=== PATIENT | male | born 1950 | race Caucasian/White ===

== ENCOUNTER 2018-03-01 18:05 | Emergency (ER) | payer OTHER ==
[2018-03-01 18:17] VITALS: BP 159/101
--- NOTE | 2018-03-01 18:32 | ED Physician Documentation ---
History of Present Illness - Stated complaint Stated Complaint: VITAMIN CAUGHT IN THROAT - Chief complaint Chief Complaint: General - History obtained from History obtained from: Patient - History of Present Illness Timing: Today (Swallowing a saw palmetto prior to arrival and feels like it stuck in his throat although he is able to swallow liquids and is talking normally.) Review of Systems Constitutional: reports: Reviewed and negative Ears: reports: Reviewed and negative Nose: reports: Reviewed and negative PD PAST MEDICAL HISTORY - Past Medical History Past Medical History: Yes Cardiovascular: Other Respiratory: None Neuro: Other Endocrine/Autoimmune: None GI: None : None HEENT: None Psych: None Musculoskeletal: None Derm: None Other Past Medical History: arterial spasms, nystagmus - Past Surgical History Past Surgical History: No - Present Medications Home Medications: Ambulatory Orders Medication Instructions Recorded Confirmed No Known Home Medications 03/01/18 03/01/18 - Allergies Allergies/Adverse Reactions: Allergies Allergy/AdvReac Type Severity Reaction Status Date / Time erythromycin base Allergy Emesis Verified 03/01/18 18:18 - Social History Does the pt smoke?: No Smoking Status: Former smoker Does the pt drink ETOH?: Yes ETOH Use: Beer Does the pt have substance abuse?: No - Immunizations Immunizations are current?: No - POLST Patient has POLST: No PD ED PE NORMAL - Vitals Vital signs reviewed: Yes - General General: Alert and oriented X 3, No acute distress - HEENT HEENT: Pharynx benign - Neck Neck: Supple, no meningeal sign, No bony TTP - Cardiac Cardiac: RRR, No murmur - Respiratory Respiratory: No respiratory distress, Clear bilaterally - Abdomen Abdomen: Non tender - Neuro Neuro: Alert and oriented X 3, Normal speech - Psych Psych: Normal mood, Normal affect Results - Vitals Vitals: Vital Signs - 24 hr 03/01/18 18:15 Temperature 36.4 C L Heart Rate 78 Respiratory 16 Rate Blood Pressure 159/101 H O2 Saturation 98 Oxygen O2 Source Room air PD MEDICAL DECISION MAKING - ED course ED course: 67-year-old gentleman with sensation of pill stuck, but exam is normal and he is tolerating orals just fine. Conservative care at this point was advised with follow-up with ENT if symptoms are persistent. Departure - Departure Disposition: 01 Home, Self Care Clinical Impression: Pill esophagitis Condition: Good Record reviewed to determine appropriate education?: Yes Comments: If not better over the next 36-48 hours you can call to arrange follow-up with an ear nose and throat physician, the closest is in [place], the phone number is [phone]. Your blood pressure was elevated today on check into the emergency department. This does not mean that you have hypertension, it is a common phenomenon to come to the emergency department and have elevated blood pressure. I recommend that you see your primary care physician within the week to have it rechecked when you are feeling better.
== END 2018-03-01 18:51 | disposition home or self-care (01) ==
LOC: ED 18:05
DX: K20.8 Other esophagitis (principal); Z87.891 Personal history of nicotine dependence; R03.0 Elevated blood-pressure reading, without diagnosis of hypertension
CPT/HCPCS: 99281; 99282